=== PATIENT | female | born 1960 | race Caucasian/White ===

== ENCOUNTER 2017-08-19 19:21 | Emergency (ER) | payer OTHER ==
[~2017-08-19] VITALS: Ht 172.7 cm; Wt 80.0 kg
[~2017-08-19 19:21] MED LIST: AMLO5TAB96 PO; OMEP20CA5 PO; ROSU5 PO; [UNRECOGNIZED DRUG - CODE] PR
[2017-08-19 19:37] VITALS: BP 162/79; PULSE 89; RESP 16; TEMP 98.4; O2SAT 96
[2017-08-19] MEDS ORDERED: DICL75TA PO (19:37)
[2017-08-19] MEDS ORDERED: AMLO5TAB2 PO (19:37)
[2017-08-19] MEDS ORDERED: OMEP20TA93 PO (19:37)
[2017-08-19] MEDS ORDERED: LIDOCAINE 1%/EPINEPHrine 1:100,000 SOLN 20 ML VIAL INFIL ONE (19:45)
[2017-08-19] MEDS ORDERED: ceFAZolin 2 GM PREMIX 50 ML IV ONE (19:45)
[2017-08-19] MEDS ORDERED: TETANUS/DIPHTHERIA TOXOID ADULT 0.5 ML VIAL IM ONE (19:45)
--- NOTE | 2017-08-19 19:57 | PD ---
HPI . Nasal injury Chief Complaint: Fall Time Seen by Provider: 19:37 Travel History International Travel<30 days: No Contact w/Intl Traveler<30days: No Traveled to known affect area: No History of Present Illness HPI Patient presents with a chief complaint of an injury to her face. She had a large dog on a leash and had started to walk up the front door when the dog pulled her down face first. Her face hit concrete. She denies loss of consciousness. She reports chronic neck pain. Her main complaint is nasal pain. She does not know the date of her last tetanus shot. She states that she has had some wine drinking tonight so her pain is not really that bad. In addition to her nose, she is complaining with some right shoulder pain from where she was jerked by the dog on the leash. This injury happened just prior to presentation. She was puppy sitting when this injury occurred. PFSH Past Medical History Arthritis: Yes Heart Rhythm Problems: No Cardiac Catheterization: No Cardiovascular Problems: No High Cholesterol: Yes Congestive Heart Failure: No Diabetes: No Diminished Hearing: No Hypertension: Yes Myocardial Infarction: No Tetanus Vaccination: Unknown Influenza Vaccination: No Menopausal: Yes Tubal Ligation: Yes Past Surgical History Coronary Artery Bypass Graft: No Other Surgery: Yes (SINUS SURGERY) Social History Alcohol Use: Yes (WEEKENDS) Tobacco Use: No Substance Use: No Allergies-Medications (Allergen,Severity, Reaction): Coded Allergies: shellfish derived (Unverified Allergy, Mild, OCCL, 08/19/17) Reported Meds & Prescriptions Reported Meds & Active Scripts Active Flexeril (Cyclobenzaprine HCl) 10 Mg Tab 10 Mg PO TID [place] (Hydrocodone-Acetaminophen) 5 Mg-325 Mg Tab 1 Tab PO Q4H PRN Keflex (Cephalexin) 500 Mg Capsule 500 Mg PO Q8H 5 Days Reported Amlodipine (Amlodipine Besylate) 5 Mg Tab 5 Mg PO DAILY Omeprazole 20 Mg Tab 20 Mg PO DAILY Diclofenac Sodium DR (Diclofenac Sodium) 75 Mg Tabdr 75 Mg PO BID Review of Systems Except as stated in HPI: all other systems reviewed are Neg HENT: Positive: Nosebleed, Neck Pain Musculoskeletal: Positive: Myalgias Skin: Positive Other (facial laceration) Physical Exam Narrative GENERAL: Awake and alert and in no acute distress. SKIN: Warm and dry. She has a laceration between the left side of her nose and her left upper lip. The laceration extends into the left nostril. She has a second laceration on the left side of the nose which also extends into the nostril. HEAD: Normocephalic/atraumatic. EYES: Pupils are equal. Extraocular movements are intact. ENT: Tenderness to palpation across the bridge of the nose with some nasal swelling. The nose appears to be mildly deviated to the right. Significant nasal swelling. No active bleeding. NECK: Normal range of motion. Diffuse tenderness which she states is chronic for her. CARDIOVASCULAR: Regular rate and rhythm. RESPIRATORY: Nonlabored respirations. MUSCULOSKELETAL: Atraumatic. Tenderness in the right deltoid. No tenderness of the glenohumeral joint. No deformity. Normal range of motion. Distally neurovascularly intact. NEUROLOGICAL: Nonfocal. PSYCHIATRIC: Appropriate mood and affect. Data Data Last Documented VS Vital Signs Date Time Temp Pulse Resp B/P (MAP) Pulse Ox O2 Delivery O2 Flow Rate FiO2 08/19/17 19:37 98.4 89 16 162/79 (106) [address] Facial Bones W/O Iv Cont (08/19/17 19:38) Tetanus/Diphtheria Tox Adult (Tetanus/Di (08/19/17 19:45) Cefazolin 2 Gm Premix (Ancef 2 Gm Premix (08/19/17 19:45) ^ Saline Lock (08/19/17 19:38) Lidocai-Epi 1%-1:100,000 Inj (Xylocaine- (08/19/17 19:45) Oxymetazoline 0.05% Ricardo [place] (Afrin 0.0 (08/19/17 20:30) Ct Cerv Spine W/O Contrast (08/19/17 20:33) Shoulder, Complete (>2vws) (08/19/17 20:33) Morphine Inj (Morphine Inj) (08/19/17 20:45) Lorazepam Inj (Ativan Inj) (08/19/17 20:45) Morphine Inj (Morphine Inj) (08/19/17 21:30) Ketorolac Inj (Toradol Inj) (08/19/17 21:30) MDM Medical Decision Making Medical Screen Exam Complete: Yes Emergency Medical Condition: Yes Medical Record Reviewed: Yes Differential Diagnosis Differential diagnosis of facial trauma includes but is not limited to soft tissue contusion, abrasions, laceration, nasal fracture, orbital fracture, zygomatic fracture Narrative Course This patient presents with an injury to her face specifically her nose. CT of her facial bones is pending. I will update her tetanus. I have empirically ordered Ancef for possible open fracture. I will plan to suture the laceration following CT. She has right shoulder pain but the shoulder injury which is most likely a strain of the deltoid muscle. During the suturing, the patient started complaining with increasing pain in her neck and her shoulder. An x-ray of the shoulder and a CT of the neck has been ordered. I have also ordered morphine and Ativan for pain and muscle spasm. She is also complaining with significant nasal congestion. That has been treated with Afrin nasal spray. The patient reports her pain is improved but she still has significant pain in both the right shoulder and the nose. I have ordered an additional dose of morphine as well as a dose of Toradol. Last Impressions Cervical Spine CT 08/19/[id number] Signed Impressions: Service Date/Time: Saturday, August 19, 2017 20:52 - CONCLUSION: 1. No acute findings. Moderate degenerative disc disease. Mild canal stenosis between C3 and C6. Santiago Serrano MD Maxillofacial CT 08/19/[id number] Signed Impressions: Service Date/Time: Saturday, August 19, 2017 19:58 - CONCLUSION: 1. Bilateral nasal bone fractures and nasal septal fracture. Globes intact. Santiago Serrano MD Shoulder X-ray>>No acute findings. The x-ray was independently viewed by me. This patient is now stable for discharge to home. Procedures Procedure Narrative LACERATION LOCATION: Nose LENGTH: 1 cm NUMBER OF STITCHES/SALO: 2 REPAIR: The area of the laceration was prepped with peroxide and sterilely draped. The laceration was infiltrated with 1% lidocaine with epinephrine. The wound was copiously irrigated and explored without evidence of foreign body, tendon injury or neurovascular injury. The wound was closed using 6-0 Prolene. This was a single layer repair. A sterile dressing was applied. The patient was advised to keep the dressing clean and dry. Patient tolerated the procedure well. LACERATION LOCATION: Between the nose and upper lip LENGTH: 2 cm NUMBER OF STITCHES/SALO: 4 REPAIR: The area of the laceration was prepped with peroxide and sterilely draped. The laceration was infiltrated with 1% lidocaine with epinephrine. The wound was copiously irrigated and explored without evidence of foreign body, tendon injury or neurovascular injury. The wound was closed using 6-0 Prolene. This was a single layer repair. A sterile dressing was applied. The patient was advised to keep the dressing clean and dry. Patient tolerated the procedure well. Diagnosis Primary Impression: Nasal fracture Qualified Codes: S02.2XXB - Fracture of nasal bones, initial encounter for open fracture Additional Impression: Facial laceration Qualified Codes: S01.81XA - Laceration without foreign body of other part of head, initial encounter Referrals: Juan Hawk DDS Primary Care Physician Patient Instructions: Facial Laceration (ED), General Instructions, Narcotic given in the ED, Nasal Fracture (DC) Additional Instructions: Clean the wounds twice daily with either peroxide or soap and water. Then apply antibiotic ointment to the wounds. I would also suggest that you coat the inside of the left side of your nose with antibiotic ointment twice a day. Suture removal in 5 days. Antibiotics as directed. Pain medication and muscle spasm medication as needed. Keep head elevated much as possible to decrease the pressure in her nose. Ice may help. You may continue to use Afrin for the next couple of days to help with the swelling in your nose. Med/Other Pt SpecificInfo: Prescription(s) given Scripts Cyclobenzaprine (Flexeril) 10 Mg Tab 10 MG PO TID for Muscle Spasm, #30 TAB 0 Refills Prov: Dorothy Ibarra MD 08/19/17 Hydrocodone-Acetaminophen ([place]) 5 Mg-325 Mg Tab 1 TAB PO Q4H Y for PAIN, #12 TAB 0 Refills Prov: Dorothy Ibrara MD 08/19/17 Cephalexin (Keflex) 500 Mg Capsule 500 MG PO Q8H for Infection for 5 Days, #15 CAP 0 Refills Prov: Dorothy Ibarra MD 08/19/17 Disposition: 01 DISCHARGE HOME Condition: Stable Dorothy Ibarra MD Aug 19, 2017 19:57
--- NOTE | 2017-08-19 20:09 | RADRPT ---
EXAM DATE/TIME: 08/19/2017 19:58 [facility] COMPARISON: No previous studies available for comparison. INDICATIONS : Trauma, fall today. Abrasion to nose. RADIATION DOSE: 35.46 CTDIvol (mGy) MEDICAL HISTORY : Hypertension. SURGICAL HISTORY : Tubal ligation. ENCOUNTER: Initial ACUITY: 1 day PAIN SCORE: 5/10 LOCATION: Bilateral nose TECHNIQUE: Volumetric scanning of the facial bones was performed. Using automated exposure control and adjustme nt of the mA and/or kV according to patient size, radiation dose was kept as low as reasonably achiev able to obtain optimal diagnostic quality images. DICOM format image data is available electronicall y for review and comparison. FINDINGS: There are bilateral nasal bone fractures and a fracture of the nasal septum there is soft tissue swel ling of the nose as well as air in the soft tissues of the nose. No orbital floor fracture identified . Globes intact. CONCLUSION: 1. Bilateral nasal bone fractures and nasal septal fracture. Globes intact. Santiago Serrano MD on August 19, 2017 at 20:04 Board Certified Radiologist. This report was verified electronically.
[2017-08-19] MEDS ORDERED: OXYMETAZOLINE HCL 0.05% 15 ML NASAL SPRAY NASAL ONE (20:30)
[2017-08-19] MEDS ORDERED: CYCL10TA PO (20:43)
[2017-08-19] MEDS ORDERED: NORC5TAB PO (20:43)
[2017-08-19] MEDS ORDERED: CEPH-460 PO (20:43)
[2017-08-19] MEDS ORDERED: MORPHINE SULFATE 4 MG/ML INJ IV PUSH ONE ×2 (20:45→21:30)
[2017-08-19] MEDS ORDERED: LORazepam 2 MG/ML VIAL IV PUSH ONE (20:45)
--- NOTE | 2017-08-19 21:23 | RADRPT ---
EXAM DATE/TIME: 08/19/2017 20:52 [facility] COMPARISON: No previous studies available for comparison. INDICATIONS : Trauma; fall. RADIATION DOSE: 22.95 CTDIvol (mGy) MEDICAL HISTORY : Hypertension. SURGICAL HISTORY : Tubal ligation. sinus surgery ENCOUNTER: Initial ACUITY: 1 day PAIN SCALE: 5/10 LOCATION: neck TECHNIQUE: Volumetric scanning of the cervical spine was performed. Multiplanar reconstructions in the sagittal, coronal and oblique axial planes were performed. Using automated exposure control and adjustment o f the mA and/or kV according to patient size, radiation dose was kept as low as reasonably achievable to obtain optimal diagnostic quality images. DICOM format image data is available electronically f or review and comparison. FINDINGS: There is moderate to severe degenerative disc disease in the cervical spine. No acute fracture or spo ndylolisthesis. No prevertebral soft tissue swelling. Mild canal stenosis between C3 and C6. CONCLUSION: 1. No acute findings. Moderate degenerative disc disease. Mild canal stenosis between C3 and C6. Santiago Serrano MD on August 19, 2017 at 21:19 Board Certified Radiologist. This report was verified electronically.
--- NOTE | 2017-08-19 21:28 | RADRPT ---
EXAM DATE/TIME: 08/19/2017 20:51 [facility] COMPARISON: No previous studies available for comparison. INDICATIONS : Pain post fall and dog attack. MEDICAL HISTORY : Arthritis. Hypercholesterolemia. Hypertension. SURGICAL HISTORY : None. ENCOUNTER: Initial ACUITY: 1 day PAIN SCORE: 9/10 LOCATION: Right Shoulder. FINDINGS: Multiple view examination of the right shoulder demonstrates no evidence of fracture or dislocation. The glenohumeral and acromioclavicular joints are maintained. There is normal range of motion betwe en internal and external rotation. Bony mineralization is normal. CONCLUSION: 1. No acute findings. Santiago Serrano MD on August 19, 2017 at 21:24 Board Certified Radiologist. This report was verified electronically.
[2017-08-19] MEDS ORDERED: KETOROLAC TROMETHAMINE 30 MG/ML (IVP) VIAL IV PUSH ONE (21:30)
== END 2017-08-19 22:16 | disposition home or self-care (01) ==
LOC: NEPE 19:21
DX: S02.2XXB Fracture of nasal bones, initial encounter for open fracture (principal); S01.81XA Laceration without foreign body of other part of head, initial encounter; M25.511 Pain in right shoulder; W19.XXXA Unspecified fall, initial encounter; Y93.K1 Activity, walking an animal; Z23 Encounter for immunization
CPT/HCPCS: 12013; 70486; 72125; 73030; 90471; 90714; 96365; 96375; 96376; 99285; J0690; J1885; J2060; J2270

== ENCOUNTER 2018-02-01 07:02 | Inpatient (IN) | payer OTHER ==
[2018-02-01] VITALS (9 sets, daily range): BP systolic 139–191; BP diastolic 70–91; PULSE 78–103; RESP 17–20; TEMP 98.5–99.1; O2SAT 99–100
[~2018-02-01] VITALS: Ht 172.7 cm; Wt 82.9 kg
[~2018-02-01 07:02] MED LIST changes: +AMLO5TAB2 PO; -AMLO5TAB96 PO; +CEPH-460 PO; +CYCL10TA PO; +DICL75TA PO; +NORC5TAB PO; -OMEP20CA5 PO; +OMEP20TA93 PO; -ROSU5 PO; -[UNRECOGNIZED DRUG - CODE] PR
[2018-02-01] MEDS ORDERED: SODIUM CHLOR 0.9% 1000 ML INJ 1,000 ML IV SCH ×2 (07:29→07:30)
[2018-02-01] MEDS ORDERED: SODIUM CHLORIDE 0.9% FLUSH 10 ML FLUSH IV FLUSH PRN ×2 (07:30→09:30)
--- NOTE | 2018-02-01 07:35 | PD ---
HPI Chief Complaint: GI Complaint Time Seen by Provider: 07:20 Travel History International Travel<30 days: No Contact w/Intl Traveler<30days: No Traveled to known affect area: No History of Present Illness HPI This is a 57-year-old female who presents to the emergency department having onset of diarrhea and intermittent vomiting 6 days ago, having loose watery stools, multiple times per day, associated with a feeling of abdominal bloating and lightheadedness and dizziness to the point where she has had to leave work. She reports that today she woke up and she had luis blood in the toilet and this concerned her and she came to the emergency department. She denies any fevers or chills. She denies any abdominal pain just an uncomfortable bloating feeling. She denies any sick contacts, recent antibiotic use or recent travel. She did cook some meat loaf that she ate several days and she wonders if that was the cause of her symptoms. PFSH Past Medical History Arthritis: Yes Heart Rhythm Problems: No Cardiac Catheterization: No Cardiovascular Problems: Yes High Cholesterol: Yes Congestive Heart Failure: No Diabetes: No Diminished Hearing: No Hypertension: Yes Myocardial Infarction: No Menopausal: Yes Tubal Ligation: Yes Past Surgical History Coronary Artery Bypass Graft: No Other Surgery: Yes (SINUS SURGERY) Social History Alcohol Use: Yes (WEEKENDS) Tobacco Use: No Substance Use: No Allergies-Medications (Allergen,Severity, Reaction): Coded Allergies: shellfish derived (Unverified Allergy, Mild, OCCL, 08/19/17) Reported Meds & Prescriptions Reported Meds & Active Scripts Active Flexeril (Cyclobenzaprine HCl) 10 Mg Tab 10 Mg PO TID [place] (Hydrocodone-Acetaminophen) 5 Mg-325 Mg Tab 1 Tab PO Q4H PRN Keflex (Cephalexin) 500 Mg Capsule 500 Mg PO Q8H 5 Days Reported Amlodipine (Amlodipine Besylate) 5 Mg Tab 5 Mg PO DAILY Omeprazole 20 Mg Tab 20 Mg PO DAILY Diclofenac Sodium DR (Diclofenac Sodium) 75 Mg Tabdr 75 Mg PO BID Review of Systems Except as stated in HPI: all other systems reviewed are Neg Physical Exam Narrative GENERAL:Well appearing, no acute distress SKIN: Focused skin assessment warm and dry. HEAD: Atraumatic. Normocephalic. EYES: Pupils equal and round. No injection or drainage. ENT: Moist mucous membranes NECK: Trachea midline. CARDIOVASCULAR: Regular rate and rhythm. No murmur appreciated. RESPIRATORY: Clear to auscultation. Breath sounds equal bilaterally. GASTROINTESTINAL: Abdomen soft, non-tender, nondistended. MUSCULOSKELETAL: No obvious deformities. NEUROLOGICAL: Awake and alert. No obvious cranial nerve deficits. Moving all extremities. PSYCHIATRIC: Appropriate mood and affect; insight and judgment normal. Data Data Last Documented VS Vital Signs Date Time Temp Pulse Resp B/P (MAP) Pulse Ox O2 Delivery O2 Flow Rate FiO2 02/01/18 07:51 100 Room Air 02/01/18 07:07 99.1 103 20 139/71 (93) Orders Orders Complete Blood Count With Diff (02/01/18 07:29) Comprehensive Metabolic Panel (02/01/18 07:29) Iv Access Insert/Monitor (02/01/18 07:29) Ecg Monitoring (02/01/18 07:29) Oximetry (02/01/18 07:29) Sodium Chlor 0.9% 1000 Ml Inj (Ns 1000 M (02/01/18 07:29) Sodium Chloride 0.9% Flush (Ns Flush) (02/01/18 07:30) Sodium Chlor 0.9% 1000 Ml Inj (Ns 1000 M (02/01/18 07:30) C Diff Toxin Pcr (02/01/18 07:42) Type And Screen (02/01/18 08:18) Prothrombin Time / Inr (Pt) (02/01/18 08:18) Act Partial Throm Time (Ptt) (02/01/18 08:18) Red Blood Cells (Rbc) (02/01/18 08:39) Sodium Chlor 0.9% 250 Ml Inj (Ns 250 Ml (02/01/18 08:45) Pantoprazole Inj (Protonix Inj) (02/01/18 08:45) Red Blood Cells (Rbc) (02/01/18 09:00) Blood Product Administration (02/01/18 09:00) Admit Order (Ed Use Only) (02/01/18 09:01) Labs Laboratory Tests Test 02/01/18 07:50 02/01/18 08:30 White Blood Count 4.4 TH/MM3 Red Blood Count 2.48 MIL/MM3 Hemoglobin 7.9 GM/DL Hematocrit 23.2 % Mean Corpuscular Volume 93.5 FL Mean Corpuscular Hemoglobin 31.8 PG Mean Corpuscular Hemoglobin Concent 34.0 % Red Cell Distribution Width 14.0 % Platelet Count 255 TH/MM3 Mean Platelet Volume 7.2 FL Neutrophils (%) (Auto) 69.3 % Lymphocytes (%) (Auto) 20.7 % Monocytes (%) (Auto) 8.5 % Eosinophils (%) (Auto) 0.5 % Basophils (%) (Auto) 1.0 % Neutrophils # (Auto) 3.1 TH/MM3 Lymphocytes # (Auto) 0.9 TH/MM3 Monocytes # (Auto) 0.4 TH/MM3 Eosinophils # (Auto) 0.0 TH/MM3 Basophils # (Auto) 0.0 TH/MM3 CBC Comment DIFF FINAL Differential Comment Blood Urea Nitrogen 37 MG/DL Creatinine 0.73 MG/DL Random Glucose 115 MG/DL Total Protein 6.2 GM/DL Albumin 3.5 GM/DL Calcium Level 8.5 MG/DL Alkaline Phosphatase 73 U/L Aspartate Amino Transf (AST/SGOT) 27 U/L Alanine Aminotransferase (ALT/SGPT) 38 U/L Total Bilirubin 0.3 MG/DL Sodium Level 140 MEQ/L Potassium Level 3.7 MEQ/L Chloride Level 107 MEQ/L Carbon Dioxide Level 22.2 MEQ/L Anion Gap 11 MEQ/L Estimat Glomerular Filtration Rate 82 ML/MIN Prothrombin Time 10.5 SEC Prothromb Time International Ratio 1.0 RATIO Activated Partial Thromboplast Time 21.5 SEC MDM Medical Decision Making Medical Screen Exam Complete: Yes Emergency Medical Condition: Yes Interpretation(s) Afebrile, tachycardic afebrile, tachycardic No leukocytosis Anemia BUN is 37 Differential Diagnosis Colitis, diverticulosis, peptic ulcer disease, gastritis, anemia Narrative Course This is a 57-year-old female who presents to the emergency department with loose bloody stools. She was placed on a monitor and an IV was established. Labs demonstrate significant anemia with a hemoglobin of 7.9 compared to prior where she has been 13. She is mildly tachycardic. Patient was given 2 units of blood in the emergency department. Her clinical history is suggestive of colitis however she is afebrile and has no leukocytosis. BUN is elevated so upper GI bleed is possible. She was given a dose of pantoprazole. Patient will be admitted for GI evaluation and likely endoscopy and colonoscopy. Physician Communication Physician Communication Discussed with Dr. Crocker Diagnosis Primary Impression: GI bleed Qualified Codes: K92.2 - Gastrointestinal hemorrhage, unspecified Admitting Information Admitting Physician Requests: it Norah Schroeder MD February 01, 2018 07:35
[2018-02-01 08:12] LABS: AUTOMATED NEUTROPHIL # 3.1 TH/MM3 (1.8-7.7); EOSINOPHIL % 0.5 % (0.0-4.0); HEMATOCRIT 23.2 % (35.0-46.0); HEMOGLOBIN 7.9 GM/DL (11.6-15.3); LYMPH % 20.7 % (9.0-44.0); LYMPHOCYTE # 0.9 TH/MM3 (1.0-4.8); MEAN CELL VOLUME 93.5 FL (80.0-100.0); MEAN CORPUSCULAR HEMOGLOBIN 31.8 PG (27.0-34.0); MEAN PLATELET VOLUME 7.2 FL (7.0-11.0); MONO % 8.5 % (0.0-8.0); MONOCYTE # 0.4 TH/MM3 (0-0.9); NEUT % 69.3 % (16.0-70.0); PLATELET COUNT 255 TH/MM3 (150-450); RED BLOOD COUNT 2.48 MIL/MM3 (4.00-5.30); WHITE BLOOD COUNT 4.4 TH/MM3 (4.0-11.0)
[2018-02-01 08:31] LABS: ALBUMIN 3.5 GM/DL (3.4-5.0); BICARBONATE 22.2 MEQ/L (21.0-32.0); BLOOD UREA NITROGEN 37 MG/DL (7-18); CALCIUM 8.5 MG/DL (8.5-10.1); CHLORIDE 107 MEQ/L (98-107); CREATININE 0.73 MG/DL (0.50-1.00); GLOMERULAR FILTRATION RATE 82 ML/MIN (>89); GLUCOSE,RANDOM 115 MG/DL (74-106); SODIUM (NA) 140 MEQ/L (136-145)
[2018-02-01 08:32] LABS: ALT (GPT) 38 U/L (10-53); AST (GOT) 27 U/L (15-37)
[2018-02-01 08:35] LABS: ALKALINE PHOSPHATASE 73 U/L (45-117); TOTAL BILIRUBIN ADULT 0.3 MG/DL (0.2-1.0); TOTAL PROTEIN 6.2 GM/DL (6.4-8.2)
[2018-02-01] MEDS ORDERED: SODIUM CHLOR 0.9% 250 ML INJ 250 ML IV ONE (08:45)
[2018-02-01] MEDS ORDERED: PANTOPRAZOLE SODIUM 40 MG VIAL IV PUSH ONE (08:45)
[2018-02-01 08:55] LABS: PROTHROMBIN TIME - PATIENT 10.5 SEC (9.8-11.6)
[2018-02-01] MEDS: PANTOPRAZOLE SODIUM 40 MG VIAL IV PUSH SCH ×2 (09:30→19:34)
[2018-02-01] MEDS ORDERED: ONDANSETRON ODT 4 MG TAB PO PRN (09:30)
--- NOTE | 2018-02-01 10:06 | HHI.HP ---
HPI Service [facility] Hospitalists Primary Care Physician Serjio Sandoval MD Admission Diagnosis gi bleed Chief Complaint: bloody stools Travel History International Travel<30 Days: No Contact w/Intl Traveler <30 Da: No Traveled to Known Affected Are: No History of Present Illness This a 57 -year-old female with past medical history which includes arthritis on diclofenac, hypertension, history of gas gastric ulcer in 2009, carpal tunnel syndrome and diverticulosis. Patient presents to the emergency department having onset of diarrhea and intermittent vomiting 6 days ago, having loose watery stools, multiple times per day, associated with a feeling of abdominal bloating and lightheadedness and dizziness to the point where she has had to leave work. She reports that today she woke up and she had luis blood in the toilet and this concerned her and she came to the emergency department. Patient take diclofenac BID for year occasionally on an empty stomach in the morning, drinks beer nightly to fall asleep and also took aspirin earlier this week. Patient denies chest pain or SOB. Review of Systems Gastrointestinal: COMPLAINS OF: Bloody stools, Diarrhea Past Family Social History Past Medical History arthritis on diclofenac, hypertension, history of gas gastric ulcer in 2009, carpal tunnel syndrome and diverticulosis Past Surgical History EGD 02/2010 revealed gastritis with ulcer and antrum Colonoscopy 02/2010 normal colon with small internal hemorrhoids Dermatological cryo therapy Endometrial ablation Hemorrhoidectomy Sinus surgery Reported Medications Flexeril (Cyclobenzaprine HCl) 10 Mg Tab 10 Mg PO TID [place] (Hydrocodone-Acetaminophen) 5 Mg-325 Mg Tab 1 Tab PO Q4H PRN Keflex (Cephalexin) 500 Mg Capsule 500 Mg PO Q8H 5 Days Amlodipine (Amlodipine Besylate) 5 Mg Tab 5 Mg PO DAILY Omeprazole 20 Mg Tab 20 Mg PO DAILY Diclofenac Sodium DR (Diclofenac Sodium) 75 Mg Tabdr 75 Mg PO BID Allergies: Coded Allergies: shellfish derived (Unverified Allergy, Mild, OCCL, 08/19/17) Family History Family history includes colon cancer Social History Drinks beer nightly to help her fall asleep Denies tobacco use or illicit drug use Physical Exam Vital Signs Vital Signs Date Time Temp Pulse Resp B/P (MAP) Pulse Ox O2 Delivery O2 Flow Rate FiO2 02/01/18 07:51 100 Room Air 02/01/18 07:07 99.1 103 20 139/71 (93) 100 Physical Exam GENERAL: This is a well-nourished, well-developed patient, in no apparent distress. SKIN: No rashes, ecchymoses or lesions. Cool and dry. HEAD: Atraumatic. Normocephalic. No temporal or scalp tenderness. EYES: Extraocular motions intact. No scleral icterus. No injection or drainage. CARDIOVASCULAR: Regular rate and rhythm RESPIRATORY: Clear to auscultation. Breath sounds equal bilaterally. GASTROINTESTINAL: Abdomen soft, mild-tenderness, nondistended. MUSCULOSKELETAL: Extremities without clubbing, cyanosis, or edema. No joint tenderness, effusion, or edema noted. No calf tenderness. Negative Homans sign bilaterally. NEUROLOGICAL: Awake and alert. Cranial nerves II through XII intact. Motor and sensory grossly within normal limits. Five out of 5 muscle strength in all muscle groups. Normal speech. Laboratory Laboratory Tests Test 02/01/18 07:50 02/01/18 08:30 White Blood Count 4.4 Red Blood Count 2.48 Hemoglobin 7.9 Hematocrit 23.2 Mean Corpuscular Volume 93.5 Mean Corpuscular Hemoglobin 31.8 Mean Corpuscular Hemoglobin Concent 34.0 Red Cell Distribution Width 14.0 Platelet Count 255 Mean Platelet Volume 7.2 Neutrophils (%) (Auto) 69.3 Lymphocytes (%) (Auto) 20.7 Monocytes (%) (Auto) 8.5 Eosinophils (%) (Auto) 0.5 Basophils (%) (Auto) 1.0 Neutrophils # (Auto) 3.1 Lymphocytes # (Auto) 0.9 Monocytes # (Auto) 0.4 Eosinophils # (Auto) 0.0 Basophils # (Auto) 0.0 CBC Comment DIFF FINAL Differential Comment Blood Urea Nitrogen 37 Creatinine 0.73 Random Glucose 115 Total Protein 6.2 Albumin 3.5 Calcium Level 8.5 Alkaline Phosphatase 73 Aspartate Amino Transf (AST/SGOT) 27 Alanine Aminotransferase (ALT/SGPT) 38 Total Bilirubin 0.3 Sodium Level 140 Potassium Level 3.7 Chloride Level 107 Carbon Dioxide Level 22.2 Anion Gap 11 Estimat Glomerular Filtration Rate 82 Prothrombin Time 10.5 Prothromb Time International Ratio 1.0 Activated Partial Thromboplast Time 21.5 Result Diagram: 02/01/18 0750 02/01/18 0750 Imaging Last Impressions Hand X-Ray 02/01/18 0000 Signed Impressions: CONCLUSION: Advanced osteoarthritis with some erosive component involving the interphalange al joints and first MCP joint. Abdomen/Pelvis CT 02/01/18 0000 Signed Impressions: CONCLUSION: 1. No acute CT abnormality to explain patient's symptoms. 2. Colonic diverticulosis without evidence for diverticulitis. 3. Normal appendix. Caprini VTE Risk Assessment Caprini VTE Risk Assessment: No/Low Risk (score <= 1) Caprini Risk Assessment Model Point Value = 1 Point Value = 2 Point Value = 3 Point Value = 5 Age 41-60 Minor surgery BMI > 25 kg/m2 Swollen legs Varicose veins or History of unexplained or recurrent spontaneous Oral contraceptives or hormone replacement Sepsis (< 1 month) Serious lung disease, including pneumonia (< 1 month) Abnormal pulmonary function Acute myocardial infarction Congestive heart failure (< 1 month) History of inflammatory bowel disease Medical patient at bed rest Age 61-74 Arthroscopic surgery Major open surgery (> 45 min) Laparoscopic surgery (> 45 min) Malignancy Confined to bed (> 72 hours) Immobilizing plaster cast Central venous access Age >= 75 History of VTE Family history of VTE Factor V Leiden Prothrombin [id number] Lupus anticoagulant Anticardiolipin antibodies Elevated serum homocysteine Heparin-induced thrombocytopenia Other congenital or acquired thrombophilia Stroke (< 1 month) Elective arthroplasty Hip, pelvis, or leg fracture Acute spinal cord injury (< 1 month) Prophylaxis Regimen Total Risk Factor Score Risk Level Prophylaxis Regimen 0-1 Low Early ambulation 2 Moderate Order ONE of the following: *Sequential Compression Device (SCD) *Heparin 5000 units SQ BID 3-4 Higher Order ONE of the following medications: *Heparin 5000 units SQ TID *Enoxaparin/Lovenox 40 mg SQ daily (WT < 150 kg, CrCl > 30 mL/min) *Enoxaparin/Lovenox 30 mg SQ daily (WT < 150 kg, CrCl > 10-29 mL/min) *Enoxaparin/Lovenox 30 mg SQ BID (WT < 150 kg, CrCl > 30 mL/min) AND/OR *Sequential Compression Device (SCD) 5 or more Highest Order ONE of the following medications: *Heparin 5000 units SQ TID (Preferred with Epidurals) *Enoxaparin/Lovenox 40 mg SQ daily (WT < 150 kg, CrCl > 30 mL/min) *Enoxaparin/Lovenox 30 mg SQ daily (WT < 150 kg, CrCl > 10-29 mL/min) *Enoxaparin/Lovenox 30 mg SQ BID (WT < 150 kg, CrCl > 30 mL/min) AND *Sequential Compression Device (SCD) Assessment and Plan Problem List: (1) GI bleed ICD Codes: K92.2 - Gastrointestinal hemorrhage, unspecified Plan: - This is a 57-year-old female who presents to the emergency department having onset of diarrhea and intermittent vomiting 6 days ago, having loose watery stools, multiple times per day, associated with a feeling of abdominal bloating and lightheadedness and dizziness. She reports that today she woke up and she had luis blood in the toilet and this concerned her and she came to the emergency department. - Patient take diclofenac BID for year occasionally on an empty stomach in the morning, drinks beer nightly to fall asleep and also took aspirin earlier this week. -Hemoglobin 7.9 on admission - 2 units packed red blood cells - H&H Q6H - NPO - Protonix 40 mg twice daily - Consult GI - Recheck CBC in a.m. - hold home diclofenac -Avoid chemical DVT prophylaxis in light of GI bleed (2) HTN (hypertension) ICD Codes: I10 - Essential (primary) hypertension Plan: - Continue home amlodipine Assessment and Plan Patient examined. Assessment and plan formulated with Nikki Motta PA-C. I agree with the above. Physician Certification 2 Midnight Certification Type: Admission for Inpatient Services Order for Inpatient Services The services are ordered in accordance with Medicare regulations or non- Medicare payer requirements, as applicable. In the case of services not specified as inpatient-only, they are appropriately provided as inpatient services in accordance with the 2-midnight benchmark. Estimated LOS (days): 2 days is the estimated time the patient will need to remain in the hospital, assuming treatment plan goals are met and no additional complications. Post-Hospital Plan: Home Problem Qualifiers (1) GI bleed: Qualified Codes: K92.2 - Gastrointestinal hemorrhage, unspecified Nikki Motta February 01, 2018 10:06 Raz Crocker DO February 03, 2018 11:50
[2018-02-01] MEDS ORDERED: IOHEXOL 350 MG/ML 10 ML VIAL (for RAD DIAG) IVCONTRAST ONE (10:15)
--- NOTE | 2018-02-01 10:35 | RADRPT ---
EXAM DATE: 02/01/2018 10:29 AM EDT AGE/SEX: 57 years / Female INDICATIONS: Bloody diarrhea and nausea for 4 days CLINICAL DATA: This is the patient's initial encounter. Patient reports that signs and symptoms have been present for 4 - 6 days and indicates a pain score of 2/10. MEDICAL/SURGICAL HISTORY: Hypertension. Tubal ligation. ORAL CONTRAST: No oral contrast ingested. RADIATION DOSE: 11.06 CTDI (mGy) COMPARISON: No prior [place] exams available for comparison. TECHNIQUE: Multiple contiguous axial images were obtained through the abdomen and pelvis following b olus infusion of 96 ml Omnipaque 350 (iohexol) nonionic water-soluble contrast as a single exam dos e. No oral contrast ingested. Using automated exposure control and adjustment of the mA and/or kV ac cording to patient size, the radiation dose was kept as low as reasonably achievable to obtain optima l diagnostic quality images. FINDINGS: Lower Lungs: The visualized lower lungs are clear. Liver: The liver has a homogeneous density without space-occupying lesion. There is no dilation of th e biliary tree. Spleen: Homogeneous density without enlargement. Pancreas: Unremarkable without mass or calcification. Kidneys: Normal in size and shape. No evidence of mass or hydronephrosis. Adrenal Glands: Unremarkable. Aorta: The aorta and proximal iliac vessels are grossly unremarkable without aneurysmal dilation. Bowel/Mesentery: Minimal sigmoid diverticulosis. Bowel otherwise appears unremarkable by CT without evidence for obstruction or significant inflammatory change. Appendix is visualized and normal in viviana earance. No free air or drainable fluid collections. Abdominal Wall: Intact. Retroperitoneum: No evidence of adenopathy in the retrocrural, para-aortic, or deep pelvic regions. Bladder: Contours are smooth. Reproductive Organs: No abnormal masses or calcifications seen. Inguinal: The inguinal region is unremarkable without evidence of adenopathy. Bony Structures: Unremarkable. CONCLUSION: 1. No acute CT abnormality to explain patient's symptoms. 2. Colonic diverticulosis without evidence for diverticulitis. 3. Normal appendix. Electronically signed by: Marco Antonio Short MD 02/01/2018 10:34 AM EDT
[2018-02-01] MEDS: 1/2 NS + KCL 20 MEQ INJ 1,000 ML IV SCH ×2 (10:55→19:34)
--- NOTE | 2018-02-01 10:56 | PD.CONS ---
HPI History of Present Illness This is a 57 year old mild obese female who presented to the emergency room on with signs of dark sticky diarrhea, gastric discomfort and bloating as well as dizziness with near syncopal episode. Onset of symptoms started approximately 4-5 days ago with generalized weakness and fatigue and an initial sensation of being constipated. Patient continued attempting to work for several days but did note some nausea and vomiting 2 but at that point did not note anything hematemesis. Approximately 48 hours ago she started having loose uncontrolled melena multiple bowel movements. Patient did drink a couple beers approximately 48 hours ago and thought that it might make her feel better. She did note she consumes daily alcohol at least for the past 10 years. This a.m. patient noted a more maroon stool in the toilet after BM. Patient has had symptomatic lightheadedness dizziness and abdominal bloating which has worsened over the past 24 hours. Patient did eat some leftover meatloaf earlier in the week and thought initially she had food poisoning. Patient denies any fevers or chills. She did note taking aspirin 325 mg 2 over the past few days for her generalized aching. Patient notes EGD and colonoscopy within the past possible 3 years plus but unknown who did it or where it was done. She did remember some polyps and history of GERD. She does have omeprazole in her home meds but only takes as needed. (Eugenia Mijares) [facility] Past Medical History Per the record and patient arthritis Hyperlipidemia Daily alcohol consumption History of GERD Denies any [place] History of polyps Hypertension Past Surgical History Previous EGD and colonoscopy unknown time , or place or person states at least 3 years ago According to the record tubal ligation (Eugenia Mijares) Coded Allergies: shellfish derived (Unverified Allergy, Mild, OCCL, 08/19/17) Social History non-smoker, daily alcohol with beer and wine, no illicit drugs (Eugenia Mijares) Review of Systems Constitutional: COMPLAINS OF: Fatigue, Dizziness Respiratory: COMPLAINS OF: Shortness of breath Gastrointestinal: COMPLAINS OF: Abdominal pain, Black stools, Nausea, Vomiting (Eugenia Mijares) GI Exam Vitals I&O Vital Signs Date Time Temp Pulse Resp B/P (MAP) Pulse Ox O2 Delivery O2 Flow Rate FiO2 02/01/18 07:51 100 Room Air 02/01/18 07:07 99.1 103 20 139/71 (93) 100 Laboratory Test 02/01/18 07:50 02/01/18 08:30 White Blood Count 4.4 TH/MM3 Red Blood Count 2.48 MIL/MM3 Hemoglobin 7.9 GM/DL Hematocrit 23.2 % Mean Corpuscular Volume 93.5 FL Mean Corpuscular Hemoglobin 31.8 PG Mean Corpuscular Hemoglobin Concent 34.0 % Red Cell Distribution Width 14.0 % Platelet Count 255 TH/MM3 Mean Platelet Volume 7.2 FL Neutrophils (%) (Auto) 69.3 % Lymphocytes (%) (Auto) 20.7 % Monocytes (%) (Auto) 8.5 % Eosinophils (%) (Auto) 0.5 % Basophils (%) (Auto) 1.0 % Neutrophils # (Auto) 3.1 TH/MM3 Lymphocytes # (Auto) 0.9 TH/MM3 Monocytes # (Auto) 0.4 TH/MM3 Eosinophils # (Auto) 0.0 TH/MM3 Basophils # (Auto) 0.0 TH/MM3 CBC Comment DIFF FINAL Differential Comment Blood Urea Nitrogen 37 MG/DL Creatinine 0.73 MG/DL Random Glucose 115 MG/DL Total Protein 6.2 GM/DL Albumin 3.5 GM/DL Calcium Level 8.5 MG/DL Alkaline Phosphatase 73 U/L Aspartate Amino Transf (AST/SGOT) 27 U/L Alanine Aminotransferase (ALT/SGPT) 38 U/L Total Bilirubin 0.3 MG/DL Sodium Level 140 MEQ/L Potassium Level 3.7 MEQ/L Chloride Level 107 MEQ/L Carbon Dioxide Level 22.2 MEQ/L Anion Gap 11 MEQ/L Estimat Glomerular Filtration Rate 82 ML/MIN Prothrombin Time 10.5 SEC Prothromb Time International Ratio 1.0 RATIO Activated Partial Thromboplast Time 21.5 SEC Physical Examination HEENT: Pupils round and reactive to light; normocephalic; atraumatic; pale, no obvious jaundice NECK: Neck is supple, no JVD, no lymphadenopathy. CHEST: Chest is clear to auscultation and percussion. CARDIAC: Regular rate and rhythm, mild tachycardia ABDOMEN: Round, soft, mild gastric bloating with mild discomfort on light palpation no hepatosplenomegaly; bowel sounds are present in all four quadrants. EXTREMITIES: No clubbing, cyanosis, or edema. 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 Mild anxiety (Eugenia Mijares) Assessment and Plan Assessment: (1) GI bleed ICD Codes: K92.2 - Gastrointestinal hemorrhage, unspecified Plan 57-year-old mildly obese female presented to the hospital on 02/01/2018 with symptomatic anemia. Hemoglobin on admission was 7.9, INR 1, WBC count 4.4. Vital signs showed low-grade temp 99.1 mild tachycardia pulse 103 and respirations 20. Initial blood pressure 139/71. Patient notes 4-5 day onset of generalized weakness and fatigue with symptomatic dizziness and near syncopal episode. She needed did note nausea and vomiting 2 but did not note any hematemesis. She did note dark melena sticky stools for the past few days and this a.m. noted a more maroon stool in the toilet and came to the hospital for evaluation. Initially her symptoms felt like possible food poisoning but did not alleviate. Aggregating factors could be gely py alcohol consumption, history of GERD without routine omeprazole being taken. Patient also took 2 regular aspirins during this last few days for her generalized aching and fatigue. Patient has had EGD: In the past but cannot remember who did it or where it was done but states it was at least 3 years plus ago. She did note a history of [place] and polyps. Plan is for 2 units of packed RBCs today. Old hospital records did show previous EGD with gastric ulcer in the antrum. Colonoscopy normal. These procedures were approximately 10 years ago. Plan Diet n.p.o. for now, may consider some clear liquids after blood transfusion completed EGD and colon for the a.m. Nothing to eat or drink after midnight mag citrate 2 with Dulcolax PPI IV Monitor labs with special attention to hemoglobin Antiemetics Further recommendations to follow Patient was seen per myself and Dr. Bridges, note was written on his behalf (Eugenia Mijares) Physician Comments Patient seen and examined Agree with above Continue with current supportive care Monitor labs Plan for an EGD and a colonoscopy tomorrow (Juan Alberto Bridges MD) Problem Qualifiers (1) GI bleed: Qualified Codes: K92.2 - Gastrointestinal hemorrhage, unspecified Eugenia Mijares February 01, 2018 10:56 Juan Alberto Bridges MD February 01, 2018 22:06
[2018-02-01 11:18] LABS: HEMATOCRIT 20.4 % (35.0-46.0); HEMOGLOBIN 6.9 GM/DL (11.6-15.3)
[2018-02-01] MEDS ORDERED: BISACODYL EC 5 MG TABEC PO ONE (16:00)
[2018-02-01 16:46] LABS: HEMATOCRIT 27.9 % (35.0-46.0); HEMOGLOBIN 9.5 GM/DL (11.6-15.3)
[2018-02-01] MEDS: MAGNESIUM CITRATE SOLN 300 ML BTL PO SCH ×2 (18:05→19:34)
[2018-02-01] MEDS ORDERED: LORazepam 1 MG TAB PO PRN (18:15)
[2018-02-01] MEDS ORDERED: FLUMAZENIL 0.5 MG/5 ML VIAL IV PUSH PRN (18:15)
[2018-02-01] MEDS ORDERED: LORazepam 2 MG TAB PO PRN (18:15)
[2018-02-01] MEDS ORDERED: LORazepam 2 MG/ML VIAL IV PUSH PRN ×4 (18:15)
[2018-02-01] MEDS ORDERED: SODIUM CHLORIDE 0.9% FLUSH 10 ML FLUSH IV FLUSH SCH (21:00)
--- NOTE | 2018-02-01 21:08 | RADRPT ---
EXAM DATE: 02/01/2018 9:01 PM EDT AGE/SEX: 57 years / Female INDICATIONS: Left hand pain and swelling, arthritis. CLINICAL DATA: This is the patient's initial encounter. Patient reports that signs and symptoms have been present for 2 days and indicates a pain score of 6/10. MEDICAL/SURGICAL HISTORY: Arthritis. None. COMPARISON: No prior [place] exams available for comparison. FINDINGS: AP, lateral and oblique views of the left hand were obtained and demonstrate mild osteopenia and norm al alignment. Degenerative changes are present greatest about the first metacarpal carpal joint with joint space loss, sclerosis and hypertrophic changes. There are degenerative change involving the int erphalangeal joints as well with joint space loss, sclerosis and hypertrophic change greatest involvi ng the third proximal interphalangeal joint. There is no acute fracture or malalignment. There are mi ld degenerative change involving the second through fifth metacarpophalangeal joints. There are no er osions or destructive change. The soft tissues are unremarkable. CONCLUSION: Osteoarthritic change greatest involving the first metacarpal carpal joint. Electronically signed by: Christian Stacy MD 02/01/2018 9:07 PM EDT
--- NOTE | 2018-02-01 21:11 | RADRPT ---
EXAM DATE: 02/01/2018 9:02 PM EDT AGE/SEX: 57 years / Female INDICATIONS: Right hand pain and swelling, arthritis. CLINICAL DATA: This is the patient's initial encounter. Patient reports that signs and symptoms have been present for 2 days and indicates a pain score of 6/10. MEDICAL/SURGICAL HISTORY: Arthritis. None. COMPARISON: No prior [place] exams available for comparison. FINDINGS: There is advanced hypertrophic osteoarthritis involving the interphalangeal joints of the second thro ugh fifth digits. The greatest amount of bony overgrowth is in the third and fourth PIP joints and di stal interphalangeal joint of the second digit. The configuration of the second DIP joint has feature s suggesting erosive osteoarthritis. There is also moderate severity hypertrophic degenerative change s in the first MCP articulation with prominent heterotopic bone. The carpus is in grossly normal alig nment. No radiopaque foreign bodies. No fracture seen. CONCLUSION: Advanced osteoarthritis with some erosive component involving the interphalangeal joints and first MC P joint. Electronically signed by: Edmund Roth MD 02/01/2018 9:10 PM EDT
[2018-02-01 21:52] LABS: HEMATOCRIT 32.5 % (35.0-46.0)
[2018-02-01] MEDS: ENALAPRILAT 1.25 MG/ML VIAL IV PRN (21:53)
[2018-02-01 22:33] LABS: RHEUMATOID FACTOR SCREEN NEGATIVE (NEGATIVE)
[2018-02-01] MEDS ORDERED: LACTATED RINGER'S 1000 ML IV PRN (23:45)
[2018-02-01] MEDS ORDERED: POVIDONE IODINE 5% (ANTISEPSIS KIT) 4 APPLICATIONS EACH NARE PRN (23:45)
[2018-02-01] MEDS ORDERED: CHLORHEXIDINE GLUCONATE 2 % 1 PACK (2 CLOTHS) TOPICAL PRN (23:45)
[2018-02-01] MEDS ORDERED: METOPROLOL TARTRATE 25 MG TAB PO PRN (23:45)
[2018-02-01] MEDS ORDERED: SODIUM CHLORID 0.9% 500 ML IV PRN (23:45)
[2018-02-02] VITALS (10 sets, daily range): BP systolic 131–191; BP diastolic 79–92; PULSE 71–84; RESP 18–20; TEMP 98–98.7; O2SAT 98–100
[2018-02-02 03:59] LABS: HEMATOCRIT 31.5 % (35.0-46.0); HEMOGLOBIN 10.8 GM/DL (11.6-15.3)
[2018-02-02] MEDS: 1/2 NS + KCL 20 MEQ INJ 1,000 ML IV SCH ×3 (05:25→20:13)
[2018-02-02] MEDS: ENALAPRILAT 1.25 MG/ML VIAL IV PRN ×2 (05:25→15:57)
--- NOTE | 2018-02-02 07:21 | EKG ---
Date Performed: 02/01/2018 Time Performed: 10:44:16 PTAGE: 57 years EKG: Sinus rhythm NORMAL ECG PREVIOUS TRACING : 09/24/2010 10.44 DOCTOR: Eileen Ruggiero Interpretating Date/Time 02/02/2018 07:19:07
[2018-02-02] MEDS: amLODIPine BESYLATE 5 MG TAB PO SCH (08:55)
[2018-02-02] MEDS: PANTOPRAZOLE SODIUM 40 MG VIAL IV PUSH SCH ×2 (08:56→20:10)
[2018-02-02] MEDS ORDERED: LIDOCAINE HCL 1% PF 5 ML SYRINGE OTHER ONE (10:29)
[2018-02-02] MEDS ORDERED: PROPOFOL 200 MG/20 ML AMP IV ONE (10:29)
[2018-02-02] MEDS ORDERED: DO NOT ADM ANY ANTICOAGULANT DRUGS PRN (12:10)
--- NOTE | 2018-02-02 12:13 | PD.PROCEDR ---
GI Procedure PROCEDURE PERFORMED EGD with biopsy followed by a colonoscopy with snare polypectomy INDICATION FOR PROCEDURE GI bleed PROCEDURE: The procedure, risks and benefits were discussed with Patient/POA and informed consent was obtained. Anesthesia sedated Patient with Diprivan. Patient was placed in the left lateral decubitus position. EGD: The Pentax videoscope was introduced through the oropharynx and advanced to the second portion of the duodenum under direct visualization. Retroflexion was performed in the stomach. FINDINGS: The esophagus this was normal The stomach there was patchy erythema with superficial erosions and small superficial ulcerations in the antrum no visible vessel no active bleeding the area was biopsied the rest of the stomach was unremarkable The duodenum this was normal Colonoscopy: The Pentax videoscope was introduced through the rectum and advanced to cecum where the ileocecal valve and appendiceal orifice were identified. Retroflexion was performed in the rectum. Colonic prep was good FINDINGS: Colonic withdrawal time greater than 6 minutes. As the scope was slowly withdrawn colonic mucosa was carefully inspected the patient was noted to have 2 flat polyps in the cecum both were excised using cold snare technique both were retrieved for further evaluation otherwise colonic mucosa was unremarkable and within normal limits all the way through patient was noted to have mild diverticulosis of the sigmoid region retroflexion in the rectum was unremarkable so his rectal examination ESTIMATED BLOOD LOSS: None SPECIMENS REMOVED: Gastric biopsies and colon polyps COMPLICATIONS: None IMPRESSION: Erosive gastritis Gastric ulcers Colon polyps Diverticulosis PLAN: Await biopsies Continue PPI Advance diet EGD in 2 months Colonoscopy in 1 year Okay for discharge from a GI standpoint Juan Alberto Bridges MD February 02, 2018 12:13
--- NOTE | 2018-02-02 17:09 | HHI.PR ---
Subjective Remarks elevated blood pressure Pt denies abdominal pain. Objective Vitals Vital Signs Date Time Temp Pulse Resp B/P (MAP) Pulse Ox O2 Delivery O2 Flow Rate FiO2 02/02/18 15:48 98.0 83 18 191/81 (117) 100 02/02/18 15:12 78 02/02/18 13:42 02/02/18 12:54 71 18 182/79 (113) 99 02/02/18 12:22 68 124/68 (86) 100 02/02/18 12:12 97.4 80 20 117/62 (80) 98 02/02/18 09:28 02/02/18 08:15 98.1 82 20 131/82 (98) 100 02/02/18 07:27 78 02/02/18 04:00 98.5 81 20 189/86 (120) 100 02/02/18 00:00 98.7 84 20 163/80 (107) 98 02/01/18 20:00 98.7 89 18 191/91 (124) 99 02/02/18 02/02/18 02/03/18 15:00 23:00 07:00 Intake Total 250 ml Balance 250 ml IV Total 100 ml Other 150 ml Result Diagram: 02/02/18 0348 02/01/18 0750 Imaging Last Impressions Hand X-Ray 02/01/18 0000 Signed Impressions: CONCLUSION: Advanced osteoarthritis with some erosive component involving the interphalange al joints and first MCP joint. Abdomen/Pelvis CT 02/01/18 0000 Signed Impressions: CONCLUSION: 1. No acute CT abnormality to explain patient's symptoms. 2. Colonic diverticulosis without evidence for diverticulitis. 3. Normal appendix. Objective Remarks GENERAL: This is a well-nourished, well-developed patient, in no apparent distress. CARDIOVASCULAR: Regular rate and rhythm without murmurs, gallops, or rubs. RESPIRATORY: Clear to auscultation. Breath sounds equal bilaterally. No wheezes , rales, or rhonchi. GASTROINTESTINAL: Abdomen soft, non-tender, nondistended. Normal active bowel sounds MUSCULOSKELETAL: Extremities without clubbing, cyanosis, or edema. NEURO: Alert & Oriented x4 to person, place, time, situation. Moves all ext x4 Ext: arthritic deformities of pt's hands. A/P Problem List: (1) GI bleed ICD Codes: K92.2 - Gastrointestinal hemorrhage, unspecified Plan: This is a 57-year-old female who presents to the emergency department having onset of diarrhea and intermittent vomiting 6 days ago, having loose watery stools, multiple times per day, associated with a feeling of abdominal bloating and lightheadedness and dizziness to the point where she has had to leave work. She reports that today she woke up and she had luis blood in the toilet and this concerned her and she came to the emergency department. She denies any fevers or chills. She denies any abdominal pain just an uncomfortable bloating feeling. She denies any sick contacts, recent antibiotic use or recent travel. She did cook some meat loaf that she ate several days and she wonders if that was the cause of her symptoms. - Hg 6.9 (02/01) - Pt transfused 3 units PRBCs - Hg 10.6 (02/02), 10.9 (02/03) - change protonix to PO - I met with pt, son, and [id number] at the bedside (02/03/18) I explained the importance of alcohol cessation and possible GI SE of alcohol including gastritis/ulcers/future GI bleed which could be fatal. - I also explained that diclofenac and ASA could contribute to damage of the GI epithelium and should NOT be used. - for now pt should use tylenol for pain. NOT to exceed 3g per day. - Given pt's GI admission, would consider Celebrex 100-200mg /day to be started in 4-6 weeks. -Avoid chemical DVT prophylaxis in light of GI bleed (2) HTN (hypertension) ICD Codes: I10 - Essential (primary) hypertension Status: Chronic Plan: - etoh withdrawal contributing? - change norvasc to procardia XL 30mg BID - observe (3) ETOH abuse ICD Codes: F10.10 - Alcohol abuse, uncomplicated Status: Chronic Plan: - Pt admits to drinking wine/beer every night to help her fall asleep. 3- 4 glasses nightly - start thiamine, folic acid, MVI - I recommend that pt f/u with [facility] outpt for counseling on alcohol cessation - continue scheduled librium thru 02/04 - Ativan prn per [facility] protocol (4) Osteoarthritis of hands, bilateral ICD Codes: M19.041 - Primary osteoarthritis, right hand; M19.042 - Primary osteoarthritis, left hand Status: Chronic Plan: - GAGANDEEP, RF both negative - x-ray findings of pt's hands were c/w OA - recommend tylenol prn. Consider starting celebrex in 1 month - recommend f/u visit with Rheumatology outpt to reassess pt and ensure no other arthropathy apart from OA Problem Qualifiers (1) GI bleed: Qualified Codes: K92.2 - Gastrointestinal hemorrhage, unspecified (2) HTN (hypertension): Qualified Codes: I10 - Essential (primary) hypertension (3) Osteoarthritis of hands, bilateral: Qualified Codes: M19.041 - Primary osteoarthritis, right hand; M19.042 - Primary osteoarthritis, left hand Raz Crocker DO February 02, 2018 17:09
--- NOTE | 2018-02-02 18:09 | EKG ---
Date Performed: 02/01/2018 Time Performed: 23:56:38 PTAGE: 57 years EKG: Sinus rhythm with borderline 1st degree A-V block. Since the previous tracing, no significant change noted Border line ECG PREVIOUS TRACING : 02/01/2018 10.44 DOCTOR: Sherry Brewster Interpretating Date/Time 02/02/2018 18:00:49
[2018-02-02 20:34] LABS: HEMATOCRIT 30.8 % (35.0-46.0); HEMOGLOBIN 10.6 GM/DL (11.6-15.3)
[2018-02-03] VITALS (7 sets, daily range): BP systolic 144–176; BP diastolic 78–88; PULSE 64–93; RESP 16–19; TEMP 98–98.9; O2SAT 96–100
[2018-02-03] MEDS: ENALAPRILAT 1.25 MG/ML VIAL IV PRN ×2 (00:16→16:54)
[2018-02-03 06:44] LABS: HEMATOCRIT 31.5 % (35.0-46.0); HEMOGLOBIN 10.9 GM/DL (11.6-15.3); MEAN CELL VOLUME 90.1 FL (80.0-100.0); MEAN CORPUSCULAR HEMOGLOBIN 31.2 PG (27.0-34.0); MEAN CORPUSCULAR HGB CONC 34.6 % (32.0-36.0); PLATELET COUNT 246 TH/MM3 (150-450); RED CELL DISTRIBUTION WIDTH 16.7 % (11.6-17.2); WHITE BLOOD COUNT 5.1 TH/MM3 (4.0-11.0)
[2018-02-03] MEDS: PANTOPRAZOLE SODIUM 40 MG VIAL IV PUSH SCH ×2 (08:28→19:58)
[2018-02-03] MEDS: amLODIPine BESYLATE 5 MG TAB PO SCH (08:28)
[2018-02-03] MEDS ORDERED: amLODIPine BESYLATE 5 MG TAB PO ONE (08:45)
[2018-02-03] MEDS ORDERED: ACETAMINOPHEN 325 MG TAB PO PRN (12:00)
--- NOTE | 2018-02-03 16:37 | HHI.GIFU ---
Subjective Remarks Pt is resting in bed, reading a book, no more bleeding. (Nurys Bridges [employer]) Objective Vitals I&O Vital Signs Date Time Temp Pulse Resp B/P (MAP) Pulse Ox O2 Delivery O2 Flow Rate FiO2 02/03/18 16:00 98.1 85 19 166/79 (108) 100 02/03/18 16:00 84 02/03/18 12:00 98.0 89 17 160/78 (105) 99 02/03/18 12:00 82 02/03/18 08:00 98.3 64 17 170/80 (110) 100 02/03/18 04:00 98.9 76 19 144/88 (106) 100 02/03/18 00:07 98.7 76 19 162/81 (108) 96 02/02/18 20:19 98.2 81 19 170/83 (112) 99 02/02/18 19:22 98 02/02/18 17:40 160/92 (114) I/O 02/02/18 02/02/18 02/02/18 02/03/18 02/03/18 02/03/18 07:00 15:00 23:00 07:00 15:00 23:00 Intake Total 1540 ml 250 ml 480 ml 980 ml Balance 1540 ml 250 ml 480 ml 980 ml Intake Oral 540 ml 480 ml 980 ml IV Total 1000 ml 100 ml Other 150 ml # Voids 5 3 2 # Bowel Movements 5 Laboratory Laboratory Tests Test 02/02/18 19:09 02/03/18 05:08 Hemoglobin 10.6 10.9 Hematocrit 30.8 31.5 White Blood Count 5.1 Red Blood Count 3.50 Mean Corpuscular Volume 90.1 Mean Corpuscular Hemoglobin 31.2 Mean Corpuscular Hemoglobin Concent 34.6 Red Cell Distribution Width 16.7 Platelet Count 246 Mean Platelet Volume 7.0 Physical Exam HEENT: Pupils round and reactive to light; normocephalic; atraumatic; no jaundice. Throat is clear. NECK: Neck is supple, no JVD, no lymphadenopathy. CHEST: Chest is clear to auscultation and percussion. CARDIAC: Regular rate and rhythm with no murmur gallop or rubs. ABDOMEN: Soft, nondistended, nontender; no hepatosplenomegaly; bowel sounds are present in all four quadrants. EXTREMITIES: No clubbing, cyanosis, or edema. SKIN: Normal; no rash; no jaundice. 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 (Nurys Bridges) Assessment and Plan Assessment: (1) GI bleed ICD Codes: K92.2 - Gastrointestinal hemorrhage, unspecified Plan 57-year-old mildly obese female presented to the hospital on 02/01/2018 with symptomatic anemia. Hemoglobin on admission was 7.9, INR 1, WBC count 4.4. Vital signs showed low-grade temp 99.1 mild tachycardia pulse 103 and respirations 20. Initial blood pressure 139/71. Patient notes 4-5 day onset of generalized weakness and fatigue with symptomatic dizziness and near syncopal episode. She needed did note nausea and vomiting 2 but did not note any hematemesis. She did note dark melena sticky stools for the past few days and this a.m. noted a more maroon stool in the toilet and came to the hospital for evaluation. Initially her symptoms felt like possible food poisoning but did not alleviate. Aggregating factors could be gely py alcohol consumption, history of GERD without routine omeprazole being taken. Patient also took 2 regular aspirins during this last few days for her generalized aching and fatigue. Patient has had EGD: In the past but cannot remember who did it or where it was done but states it was at least 3 years plus ago. She did note a history of Goerke and polyps. Plan is for 2 units of packed RBCs today. Old hospital records did show previous EGD with gastric ulcer in the antrum. Colonoscopy normal. These procedures were approximately 10 years ago. (02/03)- S/P EGD/colonoscopy on 02/02/18 ---> Erosive gastritis, Gastric ulcers, Colon polyps, Diverticulosis Bx pending hgb today 10.9 stable, pt doing good PLAN: TITO Await biopsies Continue PPI EGD in 2 months Colonoscopy in 1 year Avoid NSAIDs Okay for discharge from a GI standpoint f/u with GI upon discharge Patient was seen per myself and Dr. Bridges, note was written on his behalf (Nurys Bridges) Physician Comments Patient seen and examined Agree with above Continue with current supportive care Monitor labs Follow-up with GI post discharge We will sign off (Juan Alberto Bridges MD) Problem Qualifiers (1) GI bleed: Qualified Codes: K92.2 - Gastrointestinal hemorrhage, unspecified Nurys Bridges February 03, 2018 16:37 Juan Alberto Bridges MD February 03, 2018 18:44
[2018-02-03] MEDS ORDERED: NIFEdipine 30 MG SUSTAINED RELEASE TAB PO SCH (21:00)
[2018-02-04] VITALS (7 sets, daily range): BP systolic 141–158; BP diastolic 72–86; PULSE 76–103; RESP 16–18; TEMP 98.3–99.9; O2SAT 95–98
[2018-02-04 05:23] LABS: AUTOMATED NEUTROPHIL # 4.8 TH/MM3 (1.8-7.7); BASOPHIL % 0.4 % (0.0-2.0); EOSINOPHIL # 0.1 TH/MM3 (0-0.4); EOSINOPHIL % 0.9 % (0.0-4.0); HEMATOCRIT 29.5 % (35.0-46.0); HEMOGLOBIN 10.2 GM/DL (11.6-15.3); LYMPH % 18.3 % (9.0-44.0); LYMPHOCYTE # 1.3 TH/MM3 (1.0-4.8); MEAN CELL VOLUME 89.8 FL (80.0-100.0); MEAN CORPUSCULAR HEMOGLOBIN 31.2 PG (27.0-34.0); MEAN CORPUSCULAR HGB CONC 34.7 % (32.0-36.0); MONO % 13.2 % (0.0-8.0); MONOCYTE # 0.9 TH/MM3 (0-0.9); NEUT % 67.2 % (16.0-70.0); PLATELET COUNT 274 TH/MM3 (150-450); RED BLOOD COUNT 3.28 MIL/MM3 (4.00-5.30); RED CELL DISTRIBUTION WIDTH 16.1 % (11.6-17.2); WHITE BLOOD COUNT 7.1 TH/MM3 (4.0-11.0)
[2018-02-04 05:51] LABS: BICARBONATE 26.5 MEQ/L (21.0-32.0); CALCIUM 8.6 MG/DL (8.5-10.1); CREATININE 0.64 MG/DL (0.50-1.00); MAGNESIUM 1.8 MG/DL (1.5-2.5)
[2018-02-04] MEDS ORDERED: POTASSIUM CHLORIDE 10 MEQ CONTROLLED RELEASE TAB PO ONE (08:45)
[2018-02-04] MEDS ORDERED: amLODIPine BESYLATE 5 MG TAB PO SCH (09:00)
[2018-02-04] MEDS: PANTOPRAZOLE SOD 40 MG DELAYED RELEASE TAB PO SCH ×2 (10:10→20:48)
[2018-02-04] MEDS: MULTIVITAMINS/MINERALS THERAPEUTIC TAB PO SCH (10:10)
[2018-02-04] MEDS: THIAMINE HCL 100 MG TAB PO SCH (10:12)
[2018-02-04] MEDS: FOLIC ACID 1 MG TAB PO SCH (10:12)
[2018-02-04] MEDS: NIFEdipine 60 MG SUSTAINED RELEASE TAB PO SCH ×2 (10:27→20:47)
[2018-02-04] MEDS ORDERED: NIFE60TA8 PO (19:50)
[2018-02-04] MEDS ORDERED: THIA100 PO (19:50)
[2018-02-04] MEDS ORDERED: FOLI1TAB6 PO (19:50)
[2018-02-04] MEDS ORDERED: THERM PO (19:50)
[2018-02-04] MEDS ORDERED: PANT40TA3 PO (19:50)
--- NOTE | 2018-02-04 19:56 | HHI.DS ---
Discharge Summary Admission Date February 01, 2018 at 09:03 Discharge Date: February 05, 2018 Admitting Diagnosis gi bleed (1) GI bleed Diagnosis: Principal ICD Codes: K92.2 - Gastrointestinal hemorrhage, unspecified (2) HTN (hypertension) Diagnosis: Principal ICD Codes: I10 - Essential (primary) hypertension Status: Chronic (3) ETOH abuse Diagnosis: Principal ICD Codes: F10.10 - Alcohol abuse, uncomplicated Status: Chronic (4) Osteoarthritis of hands, bilateral Diagnosis: Principal ICD Codes: M19.041 - Primary osteoarthritis, right hand; M19.042 - Primary osteoarthritis, left hand Status: Chronic [facility], Dr. Juan Alberto Bridges Procedures EGD (02/02/18) performed by Dr. Juan Alberto Bridges - erosive gastritis - Gastric Ulcers - pathology pending Colonoscopy (02/02/18) performed by Dr. Juan Alberto Bridges - Colon Polyp - Diverticulosis - pathology pending Brief History This a 57 -year-old female with past medical history which includes arthritis on diclofenac, hypertension, history of gas gastric ulcer in 2009, carpal tunnel syndrome and diverticulosis. Patient presents to the emergency department having onset of diarrhea and intermittent vomiting 6 days ago, having loose watery stools, multiple times per day, associated with a feeling of abdominal bloating and lightheadedness and dizziness to the point where she has had to leave work. She reports that today she woke up and she had luis blood in the toilet and this concerned her and she came to the emergency department. Patient take diclofenac BID for year occasionally on an empty stomach in the morning, drinks beer nightly to fall asleep and also took aspirin earlier this week. Patient denies chest pain or SOB. CBC/BMP: 02/04/18 0422 02/04/18 0422 Significant Findings Laboratory Tests Test 02/01/18 21:35 02/02/18 03:48 02/02/18 19:09 02/03/18 05:08 Hemoglobin 11.0 GM/DL (11.6-15.3) 10.8 GM/DL (11.6-15.3) 10.6 GM/DL (11.6-15.3) 10.9 GM/DL (11.6-15.3) Hematocrit 32.5 % (35.0-46.0) 31.5 % (35.0-46.0) 30.8 % (35.0-46.0) 31.5 % (35.0-46.0) Red Blood Count 3.50 MIL/MM3 (4.00-5.30) Test 02/04/18 04:22 Red Blood Count 3.28 MIL/MM3 (4.00-5.30) Hemoglobin 10.2 GM/DL (11.6-15.3) Hematocrit 29.5 % (35.0-46.0) Monocytes (%) (Auto) 13.2 % (0.0-8.0) Random Glucose 116 MG/DL (74-106) Potassium Level 3.3 MEQ/L (3.5-5.1) PE at Discharge GENERAL: This is a well-nourished, well-developed patient, in no apparent distress. CARDIOVASCULAR: Regular rate and rhythm without murmurs, gallops, or rubs. RESPIRATORY: Clear to auscultation. Breath sounds equal bilaterally. No wheezes , rales, or rhonchi. GASTROINTESTINAL: Abdomen soft, non-tender, nondistended. Normal active bowel sounds MUSCULOSKELETAL: Extremities without clubbing, cyanosis, or edema. NEURO: Alert & Oriented x4 to person, place, time, situation. Moves all ext x4 Ext: arthritic deformities of pt's hands. Hospital Course (1) GI bleed ICD Codes: K92.2 - Gastrointestinal hemorrhage, unspecified Plan: This is a 57-year-old female who presents to the emergency department having onset of diarrhea and intermittent vomiting 6 days ago, having loose watery stools, multiple times per day, associated with a feeling of abdominal bloating and lightheadedness and dizziness to the point where she has had to leave work. She reports that today she woke up and she had luis blood in the toilet and this concerned her and she came to the emergency department. She denies any fevers or chills. She denies any abdominal pain just an uncomfortable bloating feeling. She denies any sick contacts, recent antibiotic use or recent travel. She did cook some meat loaf that she ate several days and she wonders if that was the cause of her symptoms. - Hg 6.9 (02/01) - Pt transfused 3 units PRBCs - Hg 10.6 (02/02), 10.9 (02/03), 10.2 (02/04) - protonix EGD (02/02/18) performed by Dr. Juan Alberto Bridges - erosive gastritis - Gastric Ulcers - pathology pending Colonoscopy (02/02/18) performed by Dr. Juan Alberto Bridges - Colon Polyp - Diverticulosis - pathology pending - I met with pt, son, and [id number] at the bedside (02/03/18) I explained the importance of alcohol cessation and possible GI SE of alcohol including gastritis/ulcers/future GI bleed which could be fatal. - I also explained that diclofenac and ASA could contribute to damage of the GI epithelium and should NOT be used. - for now pt should use tylenol for pain. NOT to exceed 3g per day. - Given pt's GI admission, would consider Celebrex 100-200mg /day to be started in 4-6 weeks. Recommend repeat EDG prior to start COX2 inhibitor. -Avoid chemical DVT prophylaxis in light of GI bleed (2) HTN (hypertension) ICD Codes: I10 - Essential (primary) hypertension Status: Chronic Plan: - etoh withdrawal contributing? - change norvasc to procardia XL 30mg BID - dose changed to procardia XL 60mg with good clinical response. - Pt instructed to keep home BP log - F/u with PCP, Dr. Serjio Sandoval, in 1 week (3) ETOH abuse ICD Codes: F10.10 - Alcohol abuse, uncomplicated Status: Chronic Plan: - Pt admits to drinking wine/beer every night to help her fall asleep. 3- 4 glasses nightly - start thiamine, folic acid, MVI - I recommend that pt f/u with [facility] outpt for counseling on alcohol cessation - pt completed scheduled librium thru 02/04 - Ativan prn per [facility] protocol ordered during hospitalization - I met with pt's son & [id number] at the bedside together with the pt. I explained the importance of alcohol cessation and f/u with [facility] mental health outpt. (4) Osteoarthritis of hands, bilateral ICD Codes: M19.041 - Primary osteoarthritis, right hand; M19.042 - Primary osteoarthritis, left hand Status: Chronic Plan: - GAGANDEEP, RF both negative - x-ray findings of pt's hands were c/w OA - recommend tylenol prn. Consider starting celebrex in 1 month & after repeat EGD - recommend f/u visit with Rheumatology outpt to reassess pt and ensure no other arthropathy apart from OA Pt Condition on Discharge: Stable Discharge Disposition: Discharge Home Discharge Instructions DIET: Follow Instructions for: Heart Healthy Diet Activities you can perform: Regular-No Restrictions Activities to Avoid: Strenuous Activity Follow up Referrals: Gastroenterology - 2 Weeks with Juan Alberto Bridges MD Internal Medicine - [address] Debbi Jones PCP Follow-up - [address] Serjio Sandoval Psychiatry Adult - 2-3 Days with [facility] New Medications: Folic Acid (Folic Acid) 1 Mg Tablet 1 MG PO DAILY for etoh for 30 Days, #30 TAB 0 Refills Multiple Vitamins W/ Minerals (Thera M Plus) 1 Tab 1 TAB PO DAILY for etoh, #30 TAB 0 Refills Nifedipine ER 24 HR (Nifedipine ER 24 HR) 60 Mg Tab 60 MG PO BID for htn, #60 TAB 0 Refills Pantoprazole (Pantoprazole) 40 Mg Tab 40 MG PO Q12HR for pud, #60 TAB 0 Refills Thiamine HCl (Gnp Vitamin B-1) 100 Mg Tab 100 MG PO DAILY for etoh for 30 Days, #30 TAB 0 Refills Continued Medications: Cyclobenzaprine (Flexeril) 10 Mg Tab 10 MG PO TID for Muscle Spasm, #30 TAB 0 Refills Discontinued Medications: Amlodipine (Amlodipine) 5 Mg Tab 5 MG PO BID for Blood Pressure Management, #30 TAB 0 Refills Cephalexin (Keflex) 500 Mg Capsule 500 MG PO Q8H for Infection for 5 Days, #15 CAP [address] (Diclofenac Sodium DR) 75 Mg Tabdr 75 MG PO BID, #60 TAB 0 Refills Hydrocodone-Acetaminophen ([place]) 5 Mg-325 Mg Tab 1 TAB PO Q4H PRN for PAIN, #12 TAB 0 Refills Omeprazole (Omeprazole) 20 Mg Tab 20 MG PO DAILY, #30 TAB 0 Refills Raz Crocker DO February 04, 2018 19:56
--- NOTE | 2018-02-04 22:01 | HHI.PR ---
Subjective Remarks LATE ENTRY NOTE FOR 02/03/18 NOTE FAILED TO SAVE IN [employer] Pt with no new complaints. Pt denies abdominal pain. Pt denies palpitations. Pt denies agitation Objective Vitals Vital Signs Date Time Temp Pulse Resp B/P (MAP) Pulse Ox O2 Delivery O2 Flow Rate FiO2 02/04/18 20:00 98.5 94 17 151/86 (107) 98 02/04/18 16:00 99.9 103 18 155/76 (102) 95 02/04/18 12:00 99.0 92 18 158/79 (105) 97 02/04/18 08:00 98.6 96 18 141/74 (96) 95 02/04/18 08:00 78 02/04/18 04:00 98.4 92 16 143/80 (101) 98 02/04/18 00:00 98.3 98 16 153/72 (99) 97 02/04/18 00:00 76 02/04/18 02/04/18 02/05/18 15:00 23:00 07:00 Intake Total 600 ml Balance 600 ml Intake Oral 600 ml Result Diagram: 02/04/18 0422 02/04/18 0422 Imaging Last Impressions Hand X-Ray 02/01/18 0000 Signed Impressions: CONCLUSION: Advanced osteoarthritis with some erosive component involving the interphalange al joints and first MCP joint. Abdomen/Pelvis CT 02/01/18 0000 Signed Impressions: CONCLUSION: 1. No acute CT abnormality to explain patient's symptoms. 2. Colonic diverticulosis without evidence for diverticulitis. 3. Normal appendix. Objective Remarks GENERAL: This is a well-nourished, well-developed patient, in no apparent distress. CARDIOVASCULAR: Regular rate and rhythm without murmurs, gallops, or rubs. RESPIRATORY: Clear to auscultation. Breath sounds equal bilaterally. No wheezes , rales, or rhonchi. GASTROINTESTINAL: Abdomen soft, non-tender, nondistended. Normal active bowel sounds MUSCULOSKELETAL: Extremities without clubbing, cyanosis, or edema. NEURO: Alert & Oriented x4 to person, place, time, situation. Moves all ext x4 Ext: arthritic deformities of pt's hands. A/P Problem List: (1) GI bleed ICD Codes: K92.2 - Gastrointestinal hemorrhage, unspecified Plan: This is a 57-year-old female who presents to the emergency department having onset of diarrhea and intermittent vomiting 6 days ago, having loose watery stools, multiple times per day, associated with a feeling of abdominal bloating and lightheadedness and dizziness to the point where she has had to leave work. She reports that today she woke up and she had luis blood in the toilet and this concerned her and she came to the emergency department. She denies any fevers or chills. She denies any abdominal pain just an uncomfortable bloating feeling. She denies any sick contacts, recent antibiotic use or recent travel. She did cook some meat loaf that she ate several days and she wonders if that was the cause of her symptoms. - Hg 6.9 (02/01) - Pt transfused 3 units PRBCs - Hg 10.6 (02/02), 10.9 (02/03) - change protonix to PO - I met with pt, son, and [id number] at the bedside (02/03/18) I explained the importance of alcohol cessation and possible GI SE of alcohol including gastritis/ulcers/future GI bleed which could be fatal. - I also explained that diclofenac and ASA could contribute to damage of the GI epithelium and should NOT be used. - for now pt should use tylenol for pain. NOT to exceed 3g per day. - Given pt's GI admission, would consider Celebrex 100-200mg /day to be started in 4-6 weeks. -Avoid chemical DVT prophylaxis in light of GI bleed (2) HTN (hypertension) ICD Codes: I10 - Essential (primary) hypertension Status: Chronic Plan: - etoh withdrawal contributing? - change norvasc to procardia XL 30mg BID - observe (3) ETOH abuse ICD Codes: F10.10 - Alcohol abuse, uncomplicated Status: Chronic Plan: - Pt admits to drinking wine/beer every night to help her fall asleep. 3- 4 glasses nightly - start thiamine, folic acid, MVI - I recommend that pt f/u with [facility] outpt for counseling on alcohol cessation - continue scheduled librium thru 02/04 - Ativan prn per [facility] protocol - I met with pt's son & [id number] at the bedside together with the pt. I explained the importance of alcohol cessation and f/u with [facility] mental health outpt. (4) Osteoarthritis of hands, bilateral ICD Codes: M19.041 - Primary osteoarthritis, right hand; M19.042 - Primary osteoarthritis, left hand Status: Chronic Plan: - GAGANDEEP, RF both negative - x-ray findings of pt's hands were c/w OA - recommend tylenol prn. Consider starting celebrex in 1 month - recommend f/u visit with Rheumatology outpt to reassess pt and ensure no other arthropathy apart from OA Problem Qualifiers (1) GI bleed: Qualified Codes: K92.2 - Gastrointestinal hemorrhage, unspecified (2) HTN (hypertension): Qualified Codes: I10 - Essential (primary) hypertension (3) Osteoarthritis of hands, bilateral: Qualified Codes: M19.041 - Primary osteoarthritis, right hand; M19.042 - Primary osteoarthritis, left hand Raz Crocker DO February 04, 2018 22:01
[2018-02-05] VITALS: BP 128/70; PULSE 85; RESP 16; TEMP 98.1; O2SAT 94
[2018-02-05 04:00] VITALS: BP 139/76; PULSE 82; RESP 16; TEMP 99.4; O2SAT 97
[2018-02-05] MEDS: THIAMINE HCL 100 MG TAB PO SCH (08:48)
[2018-02-05] MEDS: PANTOPRAZOLE SOD 40 MG DELAYED RELEASE TAB PO SCH (08:48)
[2018-02-05] MEDS: NIFEdipine 60 MG SUSTAINED RELEASE TAB PO SCH (08:48)
[2018-02-05] MEDS: FOLIC ACID 1 MG TAB PO SCH (08:48)
[2018-02-05] MEDS: MULTIVITAMINS/MINERALS THERAPEUTIC TAB PO SCH (08:48)
== END 2018-02-05 10:30 | disposition home or self-care (01) | DRG 379 ==
LOC: NEPC 07:02 → NEDA 09:03 → NEDH 13:19 → N03B 17:00
PROVIDERS: ADMIT Hospitalist; ATTEND Hospitalist
PROC: 30233N1 Transfusion of Nonautologous Red Blood Cells into Peripheral Vein, Percutaneous Approach (ICD-10-PCS; 2018-02-01)
PROC: 0DBH8ZZ Excision of Cecum, Via Natural or Artificial Opening Endoscopic (ICD-10-PCS; principal; 2018-02-02 11:35)
PROC: 0DD78ZX Extraction of Stomach, Pylorus, Via Natural or Artificial Opening Endoscopic, Diagnostic (ICD-10-PCS; 2018-02-02 11:35)
DX: K29.01 Acute gastritis with bleeding (principal); I10 Essential (primary) hypertension; E78.00 Pure hypercholesterolemia, unspecified; R00.0 Tachycardia, unspecified; D64.9 Anemia, unspecified; F10.10 Alcohol abuse, uncomplicated; K57.30 Diverticulosis of large intestine without perforation or abscess without bleeding; R55 Syncope and collapse; K21.9 Gastro-esophageal reflux disease without esophagitis; E78.5 Hyperlipidemia, unspecified; K63.5 Polyp of colon; M19.042 Primary osteoarthritis, left hand; M19.041 Primary osteoarthritis, right hand; E66.9 Obesity, unspecified; Z86.010 Personal history of colon polyps; Z68.27 Body mass index [BMI] 27.0-27.9, adult; Z87.11 Personal history of peptic ulcer disease; Z80.0 Family history of malignant neoplasm of digestive organs
CPT/HCPCS: 36430; 73130; 74177; 80048; 80053; 83735; 84550; 85014; 85018; 85025; 85027; 85610; 85652; 85730; 86038; 86430; 86850; 86900; 86901; 86920; 88305; 88312; 93005; 96361; 96374; C9113; J7030; J7050; J7120; P9016; Q9967